=== PATIENT | male | born 1950 | race Caucasian/White ===

== ENCOUNTER 2016-08-03 17:49 | Observation (INO) ==
[2016-08-03] MEDS ORDERED: Albuterol 2.5 MG/3 ML NEBULIZER IH ONE (18:59)
[2016-08-03] MEDS ORDERED: Ipratropium/Albuterol Neb 3 ML IH ONE (18:59)
[2016-08-03] MEDS ORDERED: PredniSONE 20 MG TABLET PO ONE (18:59)
--- NOTE | 2016-08-03 19:03 | Emergency Department Note ---
Disposition Clinical Impression: Acute bronchitis with bronchospasm Disposition: Admitted As Inpatient Condition: Good Referrals: Jamilah Encarnacion MACHINE FEEDER FLOORPERSON [Primary Care Provider] - Forms: ED Satisfaction Letter Time of Disposition: 22:44 URI/Sore Throat HPI - General Chief Complaint: ED Shortness of Breath/Dyspnea Stated Complaint: Cough, nasal congestion, sob Time Seen by Provider: 08/03/16 18:55 Source: patient Mode of arrival: ambulatory Limitations: no limitations Nursing Notes Reviewed: Yes Vital Signs Reviewed: Yes - History of Present Illness HPI Narrative: 66-year-old white male with a 4 week history of cough. He states that it has continued, been persistent. Initially it was productive of small amount of sputum, none now. No chest pain. He coughs so hard he feels like he cannot breathe. He has had nasal congestion. No sore throat. No documented fever. He saw his physician about a week ago. He states he was given a Z-Jones and a steroid shot and has not gotten any better. He does admit to some leg swelling which started about the same time as his shortness of breath. The leg swelling is bilateral. Pt Subjective Complaint: cough, rhinorrhea Onset (ago): week(s) Duration: constant Severity: severe Improves with: nothing Worsens with: nothing If sputum, description: clear Associated symptoms: Reports: other (Leg swelling) Treatments prior to arrival: other (Azithromycin and a steroid injection in his physician's office) - Related Data Home Medications Medication Instructions Recorded Confirmed Furosemide [Lasix] 40 mg PO QAM 08/03/16 08/03/16 Gabapentin [Neurontin] 400 mg PO TID 08/03/16 08/03/16 Insulin ASPART [Novolog Flexpen] 5 unit SQ TID 08/03/16 08/03/16 Insulin Glargine,Hum.rec.anlog 40 unit SQ BID 08/03/16 08/03/16 [Lantus Solostar] Simvastatin [Zocor] 20 mg PO QAM 08/03/16 08/03/16 Terazosin [Hytrin] 5 mg PO HS 08/03/16 08/03/16 Allergies Allergy/AdvReac Type Severity Reaction Status Date / Time No Known Allergies Allergy Unverified 06/22/15 12:02 All systems ED: reviewed and negative except as stated. Constitutional: Denies: fever, chills Eyes: Denies: eye discharge ENT ED: Reports: congestion. Denies: ear pain, throat pain Cardiovascular: Denies: chest pain Respiratory: Reports: cough, dyspnea, sputum production (Minimal clear) Gastrointestinal: Denies: abdominal pain, nausea, vomiting, diarrhea Musculoskeletal: Denies: back pain URI PMH - Past Medical History Medical history: Reports: CHF, diabetes, hyperlipidemia, hypertension Psychiatric history: Reports: no psych history - Social History Smoking Status: Never smoker Alcohol use: Reports: none Drug use: Reports: none Physical Exam - General Limitations: no limitations General appearance: alert, in no apparent distress, obese - Head Head exam: atraumatic, normocephalic - Eye Eye exam: Present: PERRL, EOMI. Absent: scleral icterus, conjunctival injection - ENT ENT exam: normal oropharynx, mucous membranes moist, TM's normal bilaterally - Neck Neck exam: Present: normal inspection, full ROM, trachea midline. Absent: lymphadenopathy - Respiratory Respiratory exam: Present: wheezes (Mild bilateral expiratory). Absent: accessory muscle use, prolonged expiratory phase - Cardiovascular Cardiovascular exam: Present: regular rate, normal rhythm, normal heart sounds - Abdominal Exam Abdominal exam: Present: soft, Non-Tender - Extremities Exam Extremities exam: Present: normal capillary refill, other (Tib-fib and ankle swelling 3+ minimally pitting. No calf tenderness.). Absent: calf tenderness - Neurological Exam Neurological exam: Present: alert, oriented X3, normal gait - Psychiatric Psychiatric exam: Present: normal affect, normal mood - Skin Skin exam: Present: warm, dry, intact, normal color. Absent: cyanosis, diaphoresis Course Vital Signs Temperature 98.1 F 08/03/16 17:55 Pulse Rate 94 08/03/16 17:55 Respiratory Rate 22 08/03/16 17:55 Blood Pressure 170/83 08/03/16 17:55 O2 Sat by Pulse Oximetry 97 08/03/16 17:55 Temperature 98.1 F 08/03/16 18:41 Pulse Rate 84 08/03/16 22:32 Respiratory Rate 18 08/03/16 22:32 Blood Pressure 147/44 08/03/16 22:32 O2 Sat by Pulse Oximetry 97 08/03/16 22:32 Oxygen Delivery Oxygen Delivery Nasal Cannula Upper Respiratory Infection - MDM Narrative Medical decision making narrative: Differential includes but is not limited to congestive heart failure, pneumonia , bronchitis with bronchospasm, viral URI, pneumothorax, COPD. His history is consistent with an upper respiratory tract infection with bronchospasm. He has had no chest pain at all, no history to suggest myocardial infarction. He has had 2 troponins of 0.04. He has some baseline renal insufficiency which is unchanged. I do not think this is a cardiac issue. His BNP is not elevated. His bronchospasm is a little better with treatment, but he continues to wheeze and cough. I am going to put him in an observation bed and repeat his troponins again. I spoke with Dr. Galvin. He is accepted patient for observation admission. - Lab Data Lab results reviewed: Yes I reviewed the patient's lab results. Result diagrams: 08/03/16 19:13 08/03/16 19:13 Lab Results 08/03/16 08/03/16 08/03/16 Range/Units 19:13 19:13 19:13 WBC 8.0 (4.3-11.1) K/mcL RBC 3.68 L (4.19-5.50) M/mcL Hgb 9.8 L (12.9-16.9) g/dL Hct 30.8 L (37.5-50.1) % MCV 83.7 (83.0-100.0) fL MCH 26.6 L (28.0-33.3) pg MCHC 31.8 (31.6-35.5) g/dL RDW 14.9 H (11.5-14.5) % Plt Count 196 (140-400) K/mcL MPV 10.9 (9.4-12.4) fL Immature Gran % 0.9 (0-4) % Seg Neutrophils % 70.4 % Lymphocytes % 20.8 % Monocytes % 6.1 % Eosinophils % 1.5 % Basophils % 0.3 % Neutrophils # 5.6 (1.6-8.9) K/mcL Lymphocytes # 1.7 (0.6-4.6) K/mcL Monocytes # 0.5 (0.0-1.3) K/mcL Eosinophils # 0.1 (0.0-0.6) K/mcL Basophils # 0.0 (0.0-0.2) K/mcL Sodium 143 (136-145) mEq/L Potassium 5.1 H (3.5-4.5) mEq/L Chloride 111 H (98-109) mEq/L Carbon Dioxide 26 (19-29) mEq/L BUN 30 H (8-26) mg/dL Creatinine 1.61 H (0.72-1.25) mg/dL Est GFR ( Amer) 53 L (> 60) Est GFR (Non-Af Amer) 43 L (> 60) BUN/Creatinine Ratio 19 (6-26) Glucose 219 H (70-99) mg/dL Calculated Osmolality 309 H (280-300) Calcium 8.9 (8.6-10.8) mg/dL Total Bilirubin 0.3 (0.2-1.2) mg/dL AST 13 (5-34) Units/L ALT 9 (0-55) Units/L Alkaline Phosphatase 109 (38-126) Units/L Troponin I 0.04 H* (0-0.03) ng/mL B-Natriuretic Peptide (0-100) pg/mL Serum Total Protein 6.6 (6.0-8.3) g/dL Albumin 3.5 (3.5-5.0) g/dL Globulin 3.1 (2.4-3.5) g/dL Albumin/Globulin Ratio 1.1 (1.1-2.2) 08/03/16 08/03/16 Range/Units 19:13 20:59 WBC (4.3-11.1) K/mcL RBC (4.19-5.50) M/mcL Hgb (12.9-16.9) g/dL Hct (37.5-50.1) % MCV (83.0-100.0) fL MCH (28.0-33.3) pg MCHC (31.6-35.5) g/dL RDW (11.5-14.5) % Plt Count (140-400) K/mcL MPV (9.4-12.4) fL Immature Gran % (0-4) % Seg Neutrophils % % Lymphocytes % % Monocytes % % Eosinophils % % Basophils % % Neutrophils # (1.6-8.9) K/mcL Lymphocytes # (0.6-4.6) K/mcL Monocytes # (0.0-1.3) K/mcL Eosinophils # (0.0-0.6) K/mcL Basophils # (0.0-0.2) K/mcL Sodium (136-145) mEq/L Potassium (3.5-4.5) mEq/L Chloride (98-109) mEq/L Carbon Dioxide (19-29) mEq/L BUN (8-26) mg/dL Creatinine (0.72-1.25) mg/dL Est GFR ( Amer) (> 60) Est GFR (Non-Af Amer) (> 60) BUN/Creatinine Ratio (6-26) Glucose (70-99) mg/dL Calculated Osmolality (280-300) Calcium (8.6-10.8) mg/dL Total Bilirubin (0.2-1.2) mg/dL AST (5-34) Units/L ALT (0-55) Units/L Alkaline Phosphatase (38-126) Units/L Troponin I 0.04 H* (0-0.03) ng/mL B-Natriuretic Peptide 265 H (0-100) pg/mL Serum Total Protein (6.0-8.3) g/dL Albumin (3.5-5.0) g/dL Globulin (2.4-3.5) g/dL Albumin/Globulin Ratio (1.1-2.2) - Radiology Data Radiology results reviewed: Yes I reviewed the patient's radiology results. - EKG Data EKG attestation: Yes I reviewed and interpreted this EKG. EKG results narrative: Sinus rhythm, rate of 84, some diffuse ST segment elevation of his millimeter across her precordium, some flattening in the inferior leads. Rhythm strip shows a sinus rhythm with rate of 84, GA 160 ms, QRS 105 ms with no other ectopy as interpreted by me. No old EKG available for comparison.
[2016-08-03 19:20] LABS: Basophils % 0.3 %; Eosinophils # 0.1 K/mcL (0.0-0.6); Eosinophils % 1.5 %; Hematocrit 30.8 % (37.5-50.1); Hemoglobin 9.8 g/dL (12.9-16.9); Immature Granulocytes % 0.9 % (0-4); Lymphocytes # 1.7 K/mcL (0.6-4.6); Lymphocytes % 20.8 %; Mean Corpuscular HGB Conc 31.8 g/dL (31.6-35.5); Mean Corpuscular Hemoglobin 26.6 pg (28.0-33.3); Mean Corpuscular Volume 83.7 fL (83.0-100.0); Mean Platelet Volume 10.9 fL (9.4-12.4); Monocytes # 0.5 K/mcL (0.0-1.3); Monocytes % 6.1 %; Neutrophils # 5.6 K/mcL (1.6-8.9); Platelet Count 196 K/mcL (140-400); Red Blood Count 3.68 M/mcL (4.19-5.50); Red Cell Distribution Width 14.9 % (11.5-14.5); Segmented Neutrophils % 70.4 %
[2016-08-03 19:37] LABS: Albumin 3.5 g/dL (3.5-5.0); Albumin/Globulin Ratio 1.1 (1.1-2.2); Bilirubin,Total 0.3 mg/dL (0.2-1.2); Calcium 8.9 mg/dL (8.6-10.8); Globulin 3.1 g/dL (2.4-3.5); Potassium 5.1 mEq/L (3.5-4.5); Total Protein 6.6 g/dL (6.0-8.3)
[2016-08-03] MEDS ORDERED: Aspirin 81 MG TAB.CHEW PO ONE (19:58)
[2016-08-03] MEDS ORDERED: Naloxone 0.4 MG/ML INJ IVP PRN (23:45)
[2016-08-03] MEDS ORDERED: MethylPREDNISolone 40 MG/ML VIAL IVP ONE (23:45)
[2016-08-03] MEDS ORDERED: Albuterol 2.5 MG/3 ML NEBULIZER IH SCH (23:45)
[2016-08-04] MEDS: Albuterol 2.5 MG/3 ML NEBULIZER IH SCH ×7 (00:58→23:16)
[2016-08-04] MEDS: *HR* Enoxaparin 40 MG/0.4 ML SYRINGE SQ SCH (05:51)
[2016-08-04] MEDS ORDERED: Furosemide 40 MG TABLET PO SCH (09:00)
[2016-08-04] MEDS ORDERED: Insulin DETEMIR 100 UNIT/ML X5UNITS SQ SCH ×2 (09:00→11:47)
[2016-08-04] MEDS ORDERED: Gabapentin 400 MG CAPSULE PO SCH (09:00)
[2016-08-04] MEDS ORDERED: Insulin LISPRO 300 UNITS/3 ML VIAL SQ SCH (09:00)
--- NOTE | 2016-08-04 11:23 | Internal Med History&Physical ---
Date of Encounter: 08/04/16 Time of Encounter: 10:50 Assessment and Plan (1) Heart failure Current visit: Yes Status: Chronic Stress echocardiogram done 09/26/2013 showed LVEF of 43% without evidence of ischemia. A TTE the previous day had shown LVEF of 60% with mild LV diastolic dysfunction seen. There was LAE at 4.30 cm. The interventricular septum posterior wall thickness measurements were elevated at 1.4 cm each. E/A ratio was 0.5. Will recheck echo. 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 We will recheck in a.m. Continue Lantus /Levemir with Accu-Cheks and SSI. 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 B12 level was low at 166 on 2014. We will check anemia testing in a.m. Qualifiers: Anemia type: unspecified type Qualified Code(s): D64.9 - Anemia, unspecified (4) Gout Current visit: Yes Status: Chronic Uric acid level was elevated at 10.7 on 02/17/2016. We will recheck level in a.m. Qualifiers: Gout site: multiple sites Gout etiology: unspecified cause Chronicity: chronic Qualified Code(s): M1A.09X0 - Idiopathic chronic gout, multiple sites , without tophus (tophi) (5) CKD (chronic kidney disease) stage 3, GFR 30-59 ml/min Current visit: Yes Status: Chronic Creatinine was 1.61 on admission with estimated GFR 43. Will monitor renal indices. (6) Acute bronchitis with bronchospasm Current visit: Yes Status: Acute Will add Symbicort and Robitussin-DM. Internal Medicine - H&P: HPI Chief complaint: Dyspnea and cough Admitted From: Home Plans for Post Hospital Care: Home History of present illness: Mr. Hancock is a 66 year old male who was sent to emergency room from his PCP office after he presented with cough and dyspnea that been present for4-5 weeks. He had received a Z-Jones and steroid injection approximately 12 days earlier but it had minimal improvement. He returned to the PCP office for reevaluation and was directed to come to emergency room. He was evaluated in ER and felt to have bronchitis and was admitted Medr floor for ongoing care needs. His respiratory history is significant for being a lifelong nonsmoker and having no documented chronic lung disease. He has not been tested for sleep apnea. He does not wear home oxygen. He states his cough had been productive of white and yellow sputum the first week but has generally been nonproductive since then. Past Med Surg Social Fam HX - Past Medical History Medical history: CHF, diabetes, hyperlipidemia, hypertension Psychiatric history: no psych history - Past Surgical History Surgical History: knee replacement - Social History Smoking Status: Never smoker Smokeless Tobacco Status: No Alcohol use: none Drug use: none Internal Medicine - H&P: Meds Furosemide [Lasix] 40 mg PO QAM 08/03/16 [History] Gabapentin [Neurontin] 400 mg PO TID 08/03/16 [History] Insulin ASPART [Novolog Flexpen] 5 unit SQ TID 08/03/16 [History] Insulin Glargine,Hum.rec.anlog [Lantus Solostar] 40 unit SQ BID 08/03/16 [ History] Simvastatin [Zocor] 20 mg PO QAM 08/03/16 [History] Terazosin [Hytrin] 5 mg PO HS 08/03/16 [History] Allergies No Known Allergies Allergy (Unverified 06/22/15 12:02) All Systems PM: A 10-system review of systems was performed and is negative for pertinent findings except as documented above in the HPI. Review of systems: Gen.: He states his weight is increased approximately 20 pounds in the past 2 months since onset of the illness Cardiovascular: He has history of hypertension. He had aortic stenosis and underwent aortic valve replacement (porcine) in 2008. He had a stress echo done approximately 3 years ago. He has been told conflicting information regarding congestive heart failure with one grain blender stating he did have it another grain blender stating he did not have it. He denies DVT or pulmonary embolus. He does not get chest pain on exertion. Respiratory: As per history of present illness GI: Denies disorders of his liver gallbladder or exocrine pancreas : He has CKD stage III but does not follow with a mental health worker. He has minimal BPH symptoms. He denies other kidney or bladder disorders Neurologic: He denies large distribution strokes or seizures. He does have diabetic peripheral neuropathy. Endocrine: He was diagnosed with DM 2 approximately age 46. He has hyperlipidemia but denies thyroid disease. Hematology/oncology: Denies internal malignancies. He did have anemia found on blood work in emergency room. Psychiatric: He has feelings of depression at times but does not take medication. Denies other mental health disorders. Musculoskeletal: He has diagnosis of gout. He has minimal DJD pain. He denies other bone joint or muscle disorders. - Constitutional Vitals: Temp Pulse Resp BP Pulse Ox 97.6 F 91 18 164/73 96 08/04/16 10:37 08/04/16 10:37 08/04/16 10:37 08/04/16 10:37 08/04/16 10:37 Exam: Gen.: He is well-developed obese male sitting in a chair and appears in minimal respiratory distress HEENT: Head is atraumatic and normocephalic. Eyes: EOMI. There is no scleral icterus. Mouth: Mucosa is moist. Neck: Supple and nontender. There is no thyromegaly or adenopathy noted. Heart: Regular without murmurs gallops or ectopics. Lungs: He has few scattered rhonchi and mild prolonged expiratory phase with very minimal wheezing heard. Back: Straight without flank tenderness Abdomen: He has a large abdomen. It is nontender to palpation. Exam is limited because he is in the seated position. Extremities: He has 2-3+ edema of the dorsum feet and lower anterior odonnell bilaterally. Dorsalis pedis and posterior tibial pulses are nonpalpable. His feet are warm to touch Neurologic: Mental status: He is talkative and a good historian. Cranial nerves : Smile is symmetric. Or head wrinkles bilaterally. Tongue protrudes midline. EOMI. Motor: There is no pronator drift. Cerebellar: Finger to nose is intact bilaterally. Skin: Warm and dry. Internal Med - H&P Results - Labs CBC & Chem 7: 08/03/16 19:13 08/03/16 19:13 Labs: Cardiac Enzymes 08/04/16 Range/Units 03:19 Troponin I 0.04 H* (0-0.03) ng/mL
[2016-08-04] MEDS ORDERED: Dextrose Gel 15 GM PO PRN ×2 (11:30)
[2016-08-04] MEDS ORDERED: D5% in Water 1,000 ML IV PRN (11:30)
[2016-08-04] MEDS ORDERED: *HR* Dextrose 50 % in Water (Syg) 50 ML SYRINGE IVP PRN (11:30)
[2016-08-04] MEDS: Insulin LISPRO 300 UNITS/3 ML VIAL SQ SCH ×4 (12:28→20:18)
[2016-08-04] MEDS: *HR* Digoxin 0.25 MG TABLET PO SCH (12:29)
[2016-08-04] MEDS: Isosorbide MONOnitrate (24 HR) 30 MG TAB.ER.24H PO SCH (12:29)
[2016-08-04] MEDS: Furosemide 40 MG/4 ML VIAL IVP SCH ×2 (12:29→20:17)
[2016-08-04] MEDS ORDERED: Insulin DETEMIR 100 UNIT/ML X5UNITS SQ ONE (12:30)
[2016-08-04] MEDS: Budesonide/Formoterol 160/4.5 MDI IH SCH ×2 (14:24→23:14)
[2016-08-04] MEDS: Gabapentin 300 MG CAPSULE PO SCH ×2 (15:59→20:17)
[2016-08-04] MEDS: Insulin DETEMIR 100 UNIT/ML X5UNITS SQ SCH (20:19)
[2016-08-05] MEDS: Albuterol 2.5 MG/3 ML NEBULIZER IH SCH ×2 (03:55→07:52)
[2016-08-05 05:55] LABS: Basophils % 0.1 %; Hematocrit 28.3 % (37.5-50.1); Hemoglobin 8.9 g/dL (12.9-16.9); Immature Granulocytes % 0.7 % (0-4); Lymphocytes # 1.4 K/mcL (0.6-4.6); Lymphocytes % 15.1 %; Mean Corpuscular HGB Conc 31.4 g/dL (31.6-35.5); Mean Corpuscular Volume 82.7 fL (83.0-100.0); Mean Platelet Volume 10.5 fL (9.4-12.4); Monocytes # 0.6 K/mcL (0.0-1.3); Monocytes % 6.5 %; Neutrophils # 7.1 K/mcL (1.6-8.9); Platelet Count 188 K/mcL (140-400); Red Blood Count 3.42 M/mcL (4.19-5.50); Red Cell Distribution Width 15.1 % (11.5-14.5); Segmented Neutrophils % 77.6 %
[2016-08-05 06:13] LABS: Magnesium 2.3 mg/dL (1.6-2.6); Uric Acid 9.9 mg/dL (3.5-7.2)
[2016-08-05] MEDS: *HR* Enoxaparin 40 MG/0.4 ML SYRINGE SQ SCH (06:20)
[2016-08-05] MEDS: Insulin LISPRO 300 UNITS/3 ML VIAL SQ SCH ×4 (07:53→21:36)
[2016-08-05] MEDS: Furosemide 40 MG/4 ML VIAL IVP SCH ×2 (07:59→17:48)
[2016-08-05] MEDS: *HR* Digoxin 0.25 MG TABLET PO SCH (08:01)
[2016-08-05] MEDS: Isosorbide MONOnitrate (24 HR) 30 MG TAB.ER.24H PO SCH (08:01)
[2016-08-05] MEDS: Gabapentin 300 MG CAPSULE PO SCH ×3 (08:22→21:33)
[2016-08-05 08:41] LABS: Hemoglobin A1C 7.8 %
[2016-08-05] MEDS: Insulin DETEMIR 100 UNIT/ML X5UNITS SQ SCH ×2 (09:36→21:33)
--- NOTE | 2016-08-05 10:27 | Internal Med Progress Note ---
Date of Encounter: 08/05/16 Time of Encounter: 10:20 - Assessment and plan (1) Heart failure Current Visit: Yes Status: Chronic Assessment and plan: August 05. Echocardiogram has been ordered. Continue Lanoxin and IV Lasix. Recheck labs in a.m. 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 Hemoglobin A1c is above desirable level at 7.8%. Blood sugars are still above desirable range. We will increase Lantus/Levemir and continue Accu-Cheks with SSI. Qualifiers: Diabetes mellitus complication status: with kidney complications Diabetes mellitus complication detail: with chronic kidney disease Diabetes mellitus terminal operations manager insulin use: with terminal operations manager use Chronic kidney disease stage: stage 3 (moderate) Qualified Code(s): E11.22 - Type 2 diabetes mellitus with diabetic chronic kidney disease; N18.3 - Chronic kidney disease, stage 3 ( moderate); Z79.4 - FPC (current) use of insulin (3) Anemia Current Visit: Yes Status: Chronic Assessment and plan: August 05. Anemia testing is pending. Qualifiers: Anemia type: unspecified type Qualified Code(s): D64.9 - Anemia, unspecified (4) Gout Current Visit: Yes Status: Chronic Assessment and plan: August 05. Uric acid level is elevated at 9.9. We will start allopurinol. Qualifiers: Gout site: multiple sites Gout etiology: unspecified cause Chronicity: chronic Qualified Code(s): M1A.09X0 - Idiopathic chronic gout, multiple sites , without tophus (tophi) (5) CKD (chronic kidney disease) stage 3, GFR 30-59 ml/min Current Visit: Yes Status: Chronic Assessment and plan: August 05. I will recheck renal indices in a.m. (6) Acute bronchitis with bronchospasm Current Visit: Yes Status: Acute Assessment and plan: August 05. Continue Symbicort and Robitussin-DM - Subjective Interval history: August 05. He has no new complaints and feels slightly better overall - Constitutional Vitals: Temp Pulse Resp BP Pulse Ox 97.4 F L 74 18 132/76 97 08/05/16 07:36 08/05/16 09:00 08/05/16 09:00 08/05/16 07:36 08/05/16 08:24 Exam: He is resting comfortably in bed. His affect is bright and cheerful. I reviewed his medications and lab results. Internal Medicine: Result - Labs CBC & Chem 7: 08/05/16 05:40 08/03/16 19:13 Labs: Short CBC 08/05/16 Range/Units 05:40 WBC 9.1 (4.3-11.1) K/mcL Hgb 8.9 L (12.9-16.9) g/dL Hct 28.3 L (37.5-50.1) % Plt Count 188 (140-400) K/mcL Neutrophils # 7.1 (1.6-8.9) K/mcL Consult Discharge Plan - Plan Referrals: Jamilah Encarnacion, [employer]LING [employer]PMAN [Primary Care Provider] - 1 week
[2016-08-05] MEDS ORDERED: Albuterol 2.5 MG/3 ML NEBULIZER IH PRN (10:31)
[2016-08-05] MEDS: Budesonide/Formoterol 160/4.5 MDI IH SCH ×2 (11:27→20:45)
[2016-08-05 12:46] LABS: Folate 9.9 ng/mL (7.0-31.4)
[2016-08-05] MEDS ORDERED: Perflutren Lipid Microsphere 1.3 ML in 0.9 % Sodium Chloride 8.7 ML IVP ONE (16:25)
[2016-08-05] MEDS ORDERED: Perflutren Lipid Microsphere 2 ML VIAL ONE (16:31)
--- NOTE | 2016-08-05 17:08 | Electrocardiograph Report ---
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
--- NOTE | 2016-08-05 18:44 | ECHO - Doppler Report ---
Echo with Imaging Enhancement Agent Name: Moises Hancock Date of Study: 08/05/2016 Date: 1950 Ht: 72.0 in Medical Record#: [id number] Age: 66 Wt: 351.0 lb Gender: Male BSA: 2.71 Order #: [id number] Location: [facility] Room #: 50 Reading Physician: Keshav Burrell DO, DIO, CHULA OBREGON Concrete Float Maker: Hadley Queen RDCS Ordering Physician: Rakan Galvin MD Primary Physician: None Indications: Shortness of breath Impressions: Technically sub-optimal due to body habitus. LVEF 60%. Normal LV chamber size and function. Mild concentric left ventricular hypertrophy. Moderate left ventricular diastolic dysfunction. Atypical septal motion noted. Right ventricle was not well visualized. Grossly, it appears mildly dilated with normal function. Bioprosthetic aortic valve was not well visualized. Mild bioprosthetic stenosis suggested by Doppler. Mean gradient 21 mmHg. No aortic regurgitation. No evidence of pulmonary hypertension. RVSP was not well obtained. Left Ventricular Wall Motion: Rest Echo Findings All wall segments showed normal motion. Findings: Study Quality * Technically sub-optimal due to body habitus. ECG Findings * Normal sinus rhythm. Left Ventricle * LVEF 60%. * Normal LV chamber size and function. * Mild concentric left ventricular hypertrophy. * Moderate left ventricular diastolic dysfunction. * Atypical septal motion noted. Right Ventricle * Right ventricle was not well visualized. Grossly, it appears mildly dilated with normal function. Right Atrium * Mildly dilated right atrium. Interatrial Septum * Interatrial septum not well evaluated. Aortic Valve * Bioprosthetic aortic valve was not well visualized. * No aortic regurgitation. * Mild bioprosthetic stenosis suggested by Doppler. Mean gradient 21 mmHg. Mitral Valve * Mild mitral annular calcification. * No mitral regurgitation. * No significant mitral stenosis. Mean gradient 4 mmHg. Tricuspid Valve * Normal tricuspid valve structure and function. * Trace tricuspid regurgitation. * No evidence of pulmonary hypertension. Pulmonic Valve * Pulmonic valve not well visualized. Aorta * Normally sized aortic root. Pericardium * The pericardium appears normal. IVC * The IVC is dilated. * > 50% respiratory change Pulmonary Artery * Normal visualized portions of the main pulmonary artery. Left Atrium * Moderately dilated left atrium. History Hypertension Diabetes Hypercholesteremia History of CAD/PTCA Valvular Disease Valve Replacement AV Prosthesis Biologicpercutaneous 09/26/13 a Previous Echo was performed. Contrast: Definity 1.3 ml in 8.7 ml of saline 3 ml. Measurements: BP: 143/ 79 2D Normal Values RVIDd: 3.00 cm <2.7 cm IVSd: 1.60 cm 0.6 - 1.0 cm LVIDd: 4.90 cm 3.7 - 5.6 cm LVPWd: 1.10 cm 0.6 - 1.1 cm LVIDs: 3.30 cm 1.5 - 3.6 cm AO: 3.50 cm < 4.0 cm LA: 4.20 cm 2.0 - 4.0cm %FS: 33.00 cm >25 % LVOT Diam: 2.00 cm LA volume: 85 Mitral Valve Peak Velocity 1.57 m/sec Mean Velocity:.95 m/sec Peak Grad:10.00 mmHg Mean Grad:4.00 mmHg Valve Area:2.44 cm2 Peak E:1.45 m/sec Peak A:.71 m/sec E/A Ratio:2 Peak E' Lat [place]:8.58 cm/s Peak E' Med [place]:5.75 cm/s E/E' Lat Ratio:16.9 E/E' Med Ratio:25.2 LVOT Peak [place]:1.14 m/sec Mean [place]:.81 m/sec Peak Grad:5.00 mmHg Mean Grad:3.00 mmHg Aortic Valve Peak [place]:2.87 m/sec Mean [place]:2.18 m/sec Peak Grad:33.00 mmHg Mean Grad:21.00 mmHg Valve Area:1.19 cm2 Tricuspid Valve TV Regurg Peak Grad: 15.00mmHg TV Regurg Peak [place]: 1.94m/sec Updated by Keshav Burrell DO, DIO, CHULA OBREGON on 08/05/2016 6:38:12 PM electronically signed on 08/05/2016 6:38:48 PM with status of Final Wall Motion Sands: 1=Normal, 2=Hypokinesis, 3=Akinesis, 4=Dyskinesis, 5=Aneurysmal, 6=Hyperkinetic, X=Not Visualized (Blank)=Missing
[2016-08-06 05:24] LABS: Basophils % 0.3 %; Eosinophils # 0.1 K/mcL (0.0-0.6); Eosinophils % 1.8 %; Hematocrit 31.9 % (37.5-50.1); Hemoglobin 9.9 g/dL (12.9-16.9); Immature Granulocytes % 0.9 % (0-4); Lymphocytes # 2.3 K/mcL (0.6-4.6); Lymphocytes % 29.4 %; Mean Corpuscular Hemoglobin 25.8 pg (28.0-33.3); Mean Corpuscular Volume 83.3 fL (83.0-100.0); Mean Platelet Volume 10.9 fL (9.4-12.4); Monocytes # 0.5 K/mcL (0.0-1.3); Monocytes % 6.1 %; Neutrophils # 4.9 K/mcL (1.6-8.9); Platelet Count 193 K/mcL (140-400); Red Blood Count 3.83 M/mcL (4.19-5.50); Red Cell Distribution Width 15.1 % (11.5-14.5); Segmented Neutrophils % 61.5 %
[2016-08-06 05:44] LABS: BUN/Creatinine Ratio 29 (6-26); Blood Urea Nitrogen 49 mg/dL (8-26); Calcium 9.1 mg/dL (8.6-10.8); Carbon Dioxide 28 mEq/L (19-29); Chloride 104 mEq/L (98-109); Glucose 130 mg/dL (70-99); Osmolality,Calculated 311 (280-300); Potassium 4.5 mEq/L (3.5-4.5); Sodium 143 mEq/L (136-145); eGFR For African Americans 50 (> 60); eGFR For Non-African Americans 42 (> 60)
[2016-08-06 05:55] LABS: Digoxin < 0.3 ng/mL (0.8-2.0)
[2016-08-06] MEDS: *HR* Enoxaparin 40 MG/0.4 ML SYRINGE SQ SCH (06:11)
[2016-08-06] MEDS: Budesonide/Formoterol 160/4.5 MDI IH SCH (08:40)
[2016-08-06] MEDS: *HR* Digoxin 0.25 MG TABLET PO SCH (09:41)
[2016-08-06] MEDS: Isosorbide MONOnitrate (24 HR) 30 MG TAB.ER.24H PO SCH (09:43)
[2016-08-06] MEDS: Gabapentin 300 MG CAPSULE PO SCH ×2 (09:43→15:21)
[2016-08-06] MEDS: Insulin DETEMIR 100 UNIT/ML X5UNITS SQ SCH (09:44)
[2016-08-06] MEDS: Furosemide 40 MG/4 ML VIAL IVP SCH ×2 (09:48→17:29)
[2016-08-06] MEDS: Insulin LISPRO 300 UNITS/3 ML VIAL SQ SCH ×3 (09:48→17:25)
[2016-08-06 11:06] VITALS: BP 125/75
--- NOTE | 2016-08-06 16:16 | Discharge Summary ---
Date of Encounter: 08/06/16 Time of Encounter: 15:50 - Discharge Diagnosis (1) Heart failure Priority: Primary Status: Chronic Qualifiers: Heart failure type: diastolic Heart failure chronicity: chronic Qualified Code(s): I50.32 - Chronic diastolic (congestive) heart failure (2) DM type 2 (diabetes mellitus, type 2) Priority: Secondary Status: Chronic Qualifiers: Diabetes mellitus complication status: with kidney complications Diabetes mellitus complication detail: with chronic kidney disease Diabetes mellitus penitentiary insulin use: with middle or intermediate school principal use Chronic kidney disease stage: stage 3 (moderate) Qualified Code(s): E11.22 - Type 2 diabetes mellitus with diabetic chronic kidney disease; N18.3 - Chronic kidney disease, stage 3 ( moderate); Z79.4 - FDC (current) use of insulin (3) Anemia Priority: Secondary Status: Chronic Qualifiers: Anemia type: unspecified type Qualified Code(s): D64.9 - Anemia, unspecified (4) Gout Priority: Secondary Status: Chronic Qualifiers: Gout site: multiple sites Gout etiology: unspecified cause Chronicity: chronic Qualified Code(s): M1A.09X0 - Idiopathic chronic gout, multiple sites , without tophus (tophi) (5) CKD (chronic kidney disease) stage 3, GFR 30-59 ml/min Priority: Secondary Status: Chronic - Discharge Medications Prescriptions: Allopurinol [Zyloprim 100 MG] 200 mg PO DAILY #60 tablet Ascorbic Acid [Vitamin C] 500 mg PO DAILY #30 tablet.er Digoxin [Lanoxin] 0.25 mg PO DAILY #30 tablet Ferrous Sulfate 325 mg PO DAILY #30 tablet.dr Isosorbide MONOnitrate (24 HR) [Imdur] 30 mg PO DAILY #30 tab.er.24h Home Medications: Insulin ASPART [Novolog Flexpen] 5 unit SQ TID 08/03/16 [History] Simvastatin [Zocor] 20 mg PO QAM 08/03/16 [History] Terazosin [Hytrin] 5 mg PO HS 08/03/16 [History] Allopurinol [Zyloprim 100 MG] 200 mg PO DAILY #60 tablet 08/06/16 [Rx] Ascorbic Acid [Vitamin C] 500 mg PO DAILY #30 tablet.er 08/06/16 [Rx] Digoxin [Lanoxin] 0.25 mg PO DAILY #30 tablet 08/06/16 [Rx] Ferrous Sulfate 325 mg PO DAILY #30 tablet. 08/06/16 [Rx] Furosemide [Lasix] 60 mg PO QAM #0 08/06/16 [Rx] Gabapentin [Neurontin] 400 mg PO BID #0 08/06/16 [Rx] Insulin Glargine,Hum.rec.anlog [Lantus Solostar] 50 unit SQ BID #0 08/06/16 [Rx ] Isosorbide MONOnitrate (24 HR) [Imdur] 30 mg PO DAILY #30 tab.er.24h 08/06/16 [ Rx] Allergies/Adverse Reactions: Allergies No Known Allergies Allergy (Unverified 06/22/15 12:02) Procedures/tests Complete & Pending: Procedures Performed prior 72 hours Category Date Time Status EV echocardiogram w enhance Routine Y 08/05/16 10:15 Completed Date of admission: 08/03/16 23:42 Primary care physician: Jamilah Encarnacion CNP - Patient Status Disposition: Home, Self-Care Condition: Good Functional capacity at discharge: independent ambulation Overall status at discharge: patient is progressing back to baseline - Discharge Instructions Follow Up With: Jamilah Encarnacion CNP [Primary Care Provider] - 1 week - Diet and Activity Activity: resume usual activities as tolerated Diet: diabetic diet, low salt diet Hospital course: Mr. Hancock is a 66 year old male who was sent to emergency room from his PCP office after he presented with cough and dyspnea that been present for 4-5 weeks. He had received a Z-Jones and steroid injection approximately 12 days earlier but it had minimal improvement. He returned to the PCP office for reevaluation and was directed to come to emergency room. He was evaluated in ER and felt to have bronchitis and was admitted [facility] floor for ongoing care needs. Initial orders were written by the emergency room physician. I saw him on August 04 and performed the history and physical. He was given IV Lasix. Isosorbide and Lanoxin were started. He had good clinical response with weight decreasing from 159.392 kg on August 04 to 156.036 kg on August 06. His dyspnea and cough completely resolved. Bn peptide improved to 136 by the day of discharge. An echocardiogram was done and showed LVEF of 60%. There was moderate diastolic dysfunction present. No significant valvular abnormalities were noted. I felt he possibly had cough due to heart failure. He will continue Lasix at a higher dose of 60 mg daily at discharge. Lanoxin and Imdur will also be continued. PCP Jamilah Encarnacion CNP can adjust Lasix dose as needed. Uric acid level returned elevated at 9.9. I started him on allopurinol 200 mg daily. His creatinine remained stable at 1.67 on the day of discharge with estimated GFR 42. 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 Anemia testing showed iron 35, transferrin saturation 12%, transferrin 201, ferritin 149, B12 218, and folate 9.9. He will be given ferrous sulfate and vitamin C. On August 06 I felt he was stable for discharge home. He will follow with his primary care provider Jamilah Encarnacion CNP within 1 week. Room air oximetry will be checked prior to discharge. - Time Spent with Patient Total time spent providing and/or coordinating discharge services: - Constitutional Vitals: Temp Pulse Resp BP Pulse Ox 97.7 F 69 18 125/75 94 L 08/06/16 10:58 08/06/16 10:58 08/06/16 10:58 08/06/16 10:58 08/06/16 10:58
[2016-08-06] MEDS ORDERED: FLU VACC QS2016-17 36MOS UP/PF 0.5 ML SYRINGE IM ONE (16:52)
== END 2016-08-06 18:45 | disposition home or self-care (01) ==
LOC: EMEROOPIK 17:49 → INPPIK 17:49
PROVIDERS: ADMIT Internal Medicine; ATTEND Internal Medicine